=== PATIENT | female | born 2000 | race Two or more races ===

== ENCOUNTER 2019-11-03 11:22 | Emergency (ER) | payer MEDICAID, OTHER, SELFPAY ==
[~2019-11-03] VITALS: Ht 165.1 cm; Wt 116.3 kg
[2019-11-03 11:42] VITALS: BP 117/70
[2019-11-03] MEDS ORDERED: DIPH,PERTUSS(ACELL),TET VAC/PF 0.5 ML IM-VACC ONE ×2 (12:00→12:36)
[2019-11-03] MEDS ORDERED: LIDOCAINE 2%, 20ML SQ ONE (12:00)
[2019-11-03] MEDS ORDERED: LIDOCAINE-MPF 1%, 5ML ONE (12:12)
--- NOTE | 2019-11-03 13:13 | NUR ---
Patient/Caregiver given discharge instructions and they have confirmed that they understand the instructions. Patient ambulatory with steady gait.
== END 2019-11-03 13:18 | disposition home or self-care (01) ==
LOC: ED 13:10
DX: S61.012A Laceration without foreign body of left thumb without damage to nail, initial encounter (principal); W22.8XXA Striking against or struck by other objects, initial encounter; Y93.89 Activity, other specified; Y92.69 Other specified industrial and construction area as the place of occurrence of the external cause; Y99.0 Civilian activity done for income or pay
CPT/HCPCS: 12001; 90471; 90715; 99283